=== PATIENT | female | born 2005 | race Caucasian/White ===

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

== ENCOUNTER 2025-01-05 06:45 | Day surgery (SDC) | payer BC ==
[2025-01-05] MEDS: Lactated Ringers 1,000 ML IV SCH (07:15)
[2025-01-05] MEDS ORDERED: fentaNYL 100 MCG/2 ML SDV ONE ×2 (07:27→08:18)
[2025-01-05] MEDS ORDERED: propofoL 500 MG/50 ML 50 ML ONE (07:27)
[2025-01-05] MEDS ORDERED: HYDROmorphone 1 MG/ML Syringe IVPUSH PRN (07:56)
[2025-01-05] MEDS ORDERED: Metoclopramide 10 MG/2 ML SDV IVPUSH PRN (07:56)
[2025-01-05] MEDS ORDERED: Phenylephrine HCl In 0.9% NaCl 1 MG/10 ML Syringe IVPUSH PRN (07:56)
[2025-01-05] MEDS ORDERED: Morphine 2 MG/ML SYRINGE IVPUSH PRN (07:56)
[2025-01-05] MEDS ORDERED: Naloxone 0.4 MG/ML SDV IVPUSH PRN (07:56)
[2025-01-05] MEDS ORDERED: fentaNYL 50 MCG/ML SDV IVPUSH PRN (07:56)
[2025-01-05] MEDS ORDERED: Albuterol 0.083% 2.5 MG/3 ML Neb Soln NEB PRN (07:56)
[2025-01-05] MEDS ORDERED: Ondansetron 4 MG/2 ML SDV IVPUSH PRN (07:56)
[2025-01-05] MEDS ORDERED: Ondansetron 4 MG/2 ML SDV ONE (08:15)
[2025-01-05] MEDS ORDERED: Glycopyrrolate 0.2 MG/ML SDV ONE (08:16)
[2025-01-05] MEDS ORDERED: Ketorolac 30 MG/ML SDV ONE (08:45)
[2025-01-05 09:32] VITALS: PULSE 50
[2025-01-05 12:53] VITALS: BP 109/61
== END 2025-01-05 09:59 | disposition home or self-care (01) ==
LOC: MW.SDS 06:45
PROVIDERS: ATTEND Obstetrics & Gynecology
DX: N88.2 Stricture and stenosis of cervix uteri (principal); N71.9 Inflammatory disease of uterus, unspecified; R87.628 Other abnormal cytological findings on specimens from vagina; Z79.899 Other long term (current) drug therapy
CPT/HCPCS: 57505; 58558; C1729; J1596; J1885; J2405; J2704; J3010; J7120; 00952